=== PATIENT | female | born 1960 | race Caucasian/White ===

== ENCOUNTER 2017-05-09 11:24 | Outpatient (CLI) | payer OTHER ==
--- NOTE | 2017-05-09 13:24 | Diagnostic Imaging Report ---
PANDA FERNANDEZ [facility] [address] [facility] [address] [address] Report Submission Date: May 09, 2017 12:14:07 PM CDT Patient Study Name: OSCAR PARHAM Date: May 09, 2017 11:42:59 AM CDT Modality Type: CR Gender: F Description: CHEST : 64 Institution: [facility] Physician: PANDA FERNANDEZ Examination: Plain film ribs/chest History: Injury Findings: 3 views of the ribs normal cortical margins. No fracture or dislocation. No underlying parenchymal abnormality. Impression: No rib fracture/abnormality. Electronically signed on May 09, 2017 12:14:07 PM CDT by: Raymond VILLAVICENCIO
--- NOTE | 2017-05-09 13:25 | Diagnostic Imaging Report ---
PANDA FERNANDEZ [facility] [address] [facility] [address] [address] Report Submission Date: May 09, 2017 12:12:22 PM CDT Patient Study Name: OSCAR PARHAM Date: May 09, 2017 11:38:36 AM CDT Modality Type: CR Gender: F Description: UPPER EXTREMITY : 64 Institution: [facility] Physician: PANDA FERNANDEZ Examination: Plain film wrist History: Wrist injury Comparison exams: None available Findings: 3 views the wrist demonstrate normal cortical margins. No fracture. No dislocation. No soft tissue abnormality. Impression: No acute osseous abnormality Electronically signed on May 09, 2017 12:12:22 PM CDT by: Raymond VILLAVICENCIO
== END 2017-05-09 11:25 ==
LOC: RAD 11:24
PROVIDERS: ATTEND Family Medicine
DX: S20.211A Contusion of right front wall of thorax, initial encounter (principal); S60.212A Contusion of left wrist, initial encounter; X58.XXXA Exposure to other specified factors, initial encounter; Y93.9 Activity, unspecified; Y99.9 Unspecified external cause status
CPT/HCPCS: 71100; 73110

== ENCOUNTER 2017-11-30 16:38 | Outpatient (CLI) | payer OTHER | END 2017-11-30 16:45 | LOC: LABRHC 16:38 | PROVIDERS: ATTEND Physician Assistant | DX: R30.0 Dysuria (principal) | CPT/HCPCS: 87086 ==